=== PATIENT | male | born 1985 | race Hispanic/Latino ===

== ENCOUNTER 2021-01-21 11:29 | Emergency (ER) | payer SELFPAY ==
[~2021-01-21] VITALS: Ht 177.8 cm; Wt 82.0 kg
[2021-01-21 12:53] VITALS: BP 137/88
[2021-01-21 14:55] LABS: HEMATOCRIT 42.4 % (39.0-50.0); HEMOGLOBIN 14.2 g/dl (14.0-18.0); IMMATURE GRANULOCYTES 0.1 % (0.0-5.0); MEAN CELL VOLUME 85.5 fL CALC (80.0-100.0); MEAN CORPUSCULAR HGB 28.6 pG CALC (26.0-32.0); MEAN CORPUSCULAR HGB CONC 33.5 g/dL CAL (32.0-36.0); NEUT# 6.06 thou/uL (1.82-7.42); RED BLOOD COUNT 4.96 mill/uL (4.70-6.10); RED CELL DISTRI WIDTH 12.9 % (11.5-15.5)
[2021-01-21 15:12] LABS: ALBUMIN 4.6 g/dL (3.2-5.0); ALKALINE PHOSPHATASE 72 u/l (38-126); ANION GAP 15 (6-22 (CALC)); BILIRUBIN, TOTAL 0.6 mg/dL (0.0-1.4); BUN 13 mg/dL (9-20); BUN/CREATININE RATIO 20 (12-20 (CALC)); CARBON DIOXIDE 26 mmol/l (22-30); CHLORIDE 101 mmol/l (95-108); CREATININE 0.6 mg/dL (0.7-1.3); GFR > 60 ML/MIN (>=60 (CALC)); GFR FOR AFR.AMER. > 60 ML/MIN (>=60 (CALC)); POTASSIUM 4.4 mmol/l (3.5-5.1); SGOT/AST 28 u/l (17-59); SODIUM 138 mmol/l (137-146); TOTAL PROTEIN 8.3 g/dL (6.3-8.2)
[2021-01-21] MEDS ORDERED: CEPHALEXIN500 MG PO (17:21)
[2021-01-21] MEDS ORDERED: BACTRIM DS1 TAB PO (17:21)
== END 2021-01-21 17:50 | disposition home or self-care (01) | DRG 603 ==
LOC: ED 11:29
PROVIDERS: Family Medicine
PROC: 0H9EXZZ Drainage of Left Lower Arm Skin, External Approach (ICD-10-PCS; principal; 2021-01-21)
DX: L02.414 Cutaneous abscess of left upper limb (principal)